=== PATIENT | female | born 1990 | race African-American/Black ===

== ENCOUNTER 2021-02-10 21:55 | Emergency (ER) | payer MEDICAID, OTHER ==
[~2021-02-10] VITALS: Ht 157.5 cm; Wt 66.2 kg
[2021-02-10 22:14] VITALS: BP 146/90
== END 2021-02-11 06:36 | disposition left against medical advice (07) ==
LOC: ER 21:58
DX: U07.1 COVID-19 (principal); R05.9 Cough, unspecified; R06.02 Shortness of breath; Z53.21 Procedure and treatment not carried out due to patient leaving prior to being seen by health care provider

== ENCOUNTER 2023-03-24 13:35 | Observation (INO) | payer MEDICAID ==
[~2023-03-24] VITALS: Ht 157.5 cm; Wt 90.7 kg
[2023-03-24] MEDS: LACTATED RINGER'S 1,000 ML IV ONE (15:26)
[2023-03-24] MEDS: ONDANSETRON HCL 4 MG/2 ML VIAL IV STA (15:26)
[2023-03-24] MEDS ORDERED: TERBUTALINE SULFATE 1 MG/ML 1ML VIAL SC SCH (17:30)
[2023-03-24] MEDS: BETAMETHASONE ACET (30mg/5ml) 5ml Vial 6mg/ml IM ONE (18:58)
[2023-03-24] MEDS ORDERED: MAALOX PLUS or MAALOX 30 ML PO ONE (19:30)
== END 2023-03-24 20:14 | disposition home or self-care (01) ==
LOC: LDRP 13:35
PROVIDERS: ADMIT Obstetrics & Gynecology; ATTEND Obstetrics & Gynecology
DX: O21.2 Late vomiting of pregnancy (principal); O26.893 Other specified pregnancy related conditions, third trimester; R10.9 Unspecified abdominal pain; Z3A.34 34 weeks gestation of pregnancy
CPT/HCPCS: 59025; 76805; 76818; 81002; 94760; 96361; 96372; 96374; G0378; J0702; J2405; 96360

== ENCOUNTER 2023-03-25 17:52 | Observation (INO) | payer MEDICAID ==
[~2023-03-25] VITALS: Ht 157.5 cm; Wt 99.8 kg
[2023-03-25] MEDS: BETAMETHASONE ACET (30mg/5ml) 5ml Vial 6mg/ml IM ONE (18:42)
[2023-03-25] MEDS ORDERED: LACTATED RINGER'S 1,000 ML IV SCH (19:00)
== END 2023-03-25 23:00 | disposition home or self-care (01) ==
LOC: LDRP 17:52
PROVIDERS: ADMIT Obstetrics & Gynecology; ATTEND Obstetrics & Gynecology
DX: O60.03 Preterm labor without delivery, third trimester (principal); O69.81X0 Labor and delivery complicated by cord around neck, without compression, not applicable or unspecified; O76 Abnormality in fetal heart rate and rhythm complicating labor and delivery; Z3A.35 35 weeks gestation of pregnancy
CPT/HCPCS: 59025; 76818; 81002; 94760; 96360; 96361; 96372; G0378

== ENCOUNTER 2023-03-26 09:39 | Observation (INO) | payer MEDICAID | END 2023-03-26 10:45 | disposition home or self-care (01) | LOC: LDRP 09:39 → UNDOADMOB 09:39 → LDRP 09:41 | PROVIDERS: ADMIT Obstetrics & Gynecology; ATTEND Obstetrics & Gynecology | DX: O62.9 Abnormality of forces of labor, unspecified (principal); O09.213 Supervision of pregnancy with history of pre-term labor, third trimester; O69.89X0 Labor and delivery complicated by other cord complications, not applicable or unspecified; Z3A.35 35 weeks gestation of pregnancy | CPT/HCPCS: 59025; 81002; 94760; G0378 ==

== ENCOUNTER 2023-03-26 19:06 | Inpatient (IN) | payer MEDICAID ==
[~2023-03-26] VITALS: Ht 157.5 cm; Wt 95.3 kg
[2023-03-26] MEDS: LACT. RINGERS/OXYTOCIN 20UNITS 1,000 ML IV SCH (04:00)
[2023-03-27] VITALS (18 sets, daily range): BP systolic 92–127; BP diastolic 53–82; PULSE 72–101; RESP 12–18; TEMP 97.5–98.7; O2SAT 95–99
[2023-03-27] MEDS: D5W/SOD CHL 0.45% 1,000 ML IV SCH (01:45)
[2023-03-27] MEDS ORDERED: KETOROLAC TROMETH 30 MG/ML 1ML VIAL ONE (04:13)
[2023-03-27] MEDS ORDERED: oxyTOCIN 10 UNIT/ML 10ML VIAL ONE (04:13)
[2023-03-27] MEDS ORDERED: DexAMETHasone SOD PHOS 10MG/1ML VIAL INJ ONE (04:13)
[2023-03-27] MEDS ORDERED: ONDANSETRON HCL 4 MG/2 ML VIAL ONE (04:13)
[2023-03-27] MEDS ORDERED: MORPHINE SULF PF 5 MG/10 ML VIAL ONE (04:14)
[2023-03-27] MEDS ORDERED: fentaNYL CITRATE 100 MCG/2 ML VL ONE (04:15)
[2023-03-27 04:21] LABS: Basophils # (auto) 0 10 ^3/uL (0-0.2); Basophils % (auto) 0.1 % (0.0-2.0); Eosinophils # (auto) 0 10 ^3/uL (0-0.8); Eosinophils % (auto) 0.2 % (0.0-7.0); Hemoglobin 9.1 g/dL (12.2-16.2); Lymphocytes # (auto) 2.5 10 ^3/uL (0.4-5.4); Lymphocytes % (auto) 20.4 % (10.0-50.0); Mean Corpuscular Hemoglobin 31.5 pg (28.0-32.0); Mean Corpuscular Hgb Conc. 32.7 g/dL (32.0-36.0); Mean Corpuscular Volume 96.4 fL (80.0-100.0); Monocytes # (auto) 0.9 10 ^3/uL (0-1.3); Monocytes % (auto) 7.7 % (0.0-12.0); Neutrophils # (auto) 8.7 10 ^3/uL (1.6-8.6); Neutrophils % (auto) 71.6 % (37.0-80.0); Red Cell Distribution Width 14.3 % (11.8-14.3); White Blood Cell 12.1 10^3/uL (4.4-10.8)
[2023-03-27 04:31] LABS: Urine Bacteria FEW /hpf (None Seen); Urine Blood Negative /uL (Negative); Urine Clarity HAZY (Clear); Urine Color Yellow (Yellow); Urine Mucus FEW (None Seen); Urine Protein, UAD Negative (Negative); Urine Specific Gravity 1.012 (1.001-1.035); Urine WBC 4 /hpf (0 - 5); Urine pH 6.5 (5.0-8.0)
[2023-03-27 04:32] LABS: Amphetamine Screen, Urine Neg (NEGATIVE); Barbiturate Scree,Urine Neg (NEGATIVE); Benzodiazephine Screen, Urine Neg (NEGATIVE)
[2023-03-27 04:33] LABS: Cannabinoid Screen, Urine Neg (NEGATIVE); Cocaine Screen, Urine Neg (NEGATIVE); Opiate Scree,Urine Neg (NEGATIVE); Phencyclidine Screen, Urine Neg (NEGATIVE)
[2023-03-27 04:35] LABS: Alanine Aminotransferase 12 U/L (7-40); Albumin 3.8 g/dL (3.2-4.8); Alkaline Phosphatase 120 U/L (46-116); Anion Gap 5 (5-15); Aspartate Aminotransferase 26 U/L (13-40); Bilirubin, Total 0.7 mg/dL (0.2-1.0); Calcium 8.7 mg/dL (8.5-10.1); Carbon Dioxide 25 mmol/L (20-30); Chloride 110 mmol/L (98-107); Glucose 107 mg/dL (74-106); Potassium 3.4 mmol/L (3.5-5.1); Sodium 140 mmol/L (136-145); Total Protein 6.2 g/dL (5.7-8.2)
[2023-03-27 04:36] LABS: BUN/Creatinine Ratio 8.8 (10.0-20.0); Blood Urea Nitrogen < 5 mg/dL (9-23)
[2023-03-27 04:40] LABS: INR 0.95 (0.9-1.15); Partial Thromboplastin Time 25.6 SEC (24.5-34.5)
[2023-03-27] MEDS: LACTATED RINGER'S 1,000 ML IV ONE (04:48)
[2023-03-27] MEDS: ceFAZolin 1GM/50ML 50 ML IV ONE (04:48)
[2023-03-27] MEDS ORDERED: ceFAZolin 1GM VL ONE (05:11)
[2023-03-27] MEDS ORDERED: ceFAZolin 1GM/50ML 50 ML IV SCH (06:45)
[2023-03-27] MEDS ORDERED: HYDROmorphone HCL 2 MG/ML VL/or syr IV PRN (06:45)
[2023-03-27] MEDS ORDERED: NALBUPHINE HCL 10 MG/1ml INJECTION IV ONE (06:45)
[2023-03-27] MEDS ORDERED: LACT. RINGERS/OXYTOCIN 20UNITS 1,000 ML IV SCH (06:45)
[2023-03-27] MEDS ORDERED: ONDANSETRON HCL 4 MG/2 ML VIAL IV PRN (06:45)
[2023-03-27] MEDS ORDERED: KETOROLAC TROMETH 30 MG/ML 1ML VIAL IV PRN (06:45)
[2023-03-27] MEDS ORDERED: diphenhdrAMINE HCL 50 MG/1 ML VL IV PRN (06:45)
[2023-03-27] MEDS ORDERED: NALOXONE HCL 0.4 MG/ML VIAL IV PRN (06:45)
[2023-03-27 08:18] LABS: Basophils # (auto) 0 10 ^3/uL (0-0.2); Basophils % (auto) 0.1 % (0.0-2.0); Eosinophils # (auto) 0 10 ^3/uL (0-0.8); Eosinophils % (auto) 0.3 % (0.0-7.0); Hematocrit 24.1 % (36.0-46.0); Hemoglobin 7.9 g/dL (12.2-16.2); Lymphocytes # (auto) 1.7 10 ^3/uL (0.4-5.4); Lymphocytes % (auto) 17.2 % (10.0-50.0); Mean Corpuscular Hgb Conc. 32.9 g/dL (32.0-36.0); Mean Corpuscular Volume 97.1 fL (80.0-100.0); Monocytes # (auto) 0.5 10 ^3/uL (0-1.3); Neutrophils # (auto) 7.5 10 ^3/uL (1.6-8.6); Neutrophils % (auto) 77.4 % (37.0-80.0); Nucleated Red Blood Cells % 0.1 %; Red Blood Cells 2.48 10^6/uL (4.0-5.20); Red Cell Distribution Width 14.6 % (11.8-14.3); White Blood Cell 9.7 10^3/uL (4.4-10.8)
[2023-03-27] MEDS: ONDANSETRON HCL 4 MG/2 ML VIAL IV PRN (08:33)
[2023-03-27] MEDS: diphenhdrAMINE HCL 50 MG/1 ML VL IV PRN (08:33)
[2023-03-27 12:17] LABS: Basophils # (auto) 0 10 ^3/uL (0-0.2); Eosinophils # (auto) 0 10 ^3/uL (0-0.8); Monocytes # (auto) 1.3 10 ^3/uL (0-1.3); Monocytes % (auto) 7.4 % (0.0-12.0); Nucleated Red Blood Cells % 0.1 %; Red Cell Distribution Width 15.1 % (11.8-14.3); White Blood Cell 17.7 10^3/uL (4.4-10.8)
[2023-03-27 12:20] LABS: Basophils % (auto) 0.2 % (0.0-2.0); Hematocrit 24.1 % (36.0-46.0); Hemoglobin 7.6 g/dL (12.2-16.2); Lymphocytes # (auto) 1.3 10 ^3/uL (0.4-5.4); Lymphocytes % (auto) 7.2 % (10.0-50.0); Mean Corpuscular Hemoglobin 31.4 pg (28.0-32.0); Mean Corpuscular Hgb Conc. 31.6 g/dL (32.0-36.0); Mean Corpuscular Volume 99.4 fL (80.0-100.0); Neutrophils # (auto) 15.1 10 ^3/uL (1.6-8.6); Neutrophils % (auto) 85.2 % (37.0-80.0); Red Blood Cells 2.42 10^6/uL (4.0-5.20)
[2023-03-27] MEDS: ceFAZolin 1GM/50ML 50 ML IV SCH (13:00)
[2023-03-27] MEDS ORDERED: DEXTROSE 10% IV ONE (15:45)
[2023-03-27] MEDS: LACTATED RINGER'S 1,000 ML IV SCH (18:11)
[2023-03-28] VITALS (21 sets, daily range): BP systolic 92–132; BP diastolic 42–78; PULSE 77–97; RESP 12–18; TEMP 97.9–99; O2SAT 93–99
[2023-03-28] MEDS: ACETAMINOPHEN IV 1000 MG/100ML (10MG/ML) IV PRN (03:22)
[2023-03-28 06:58] LABS: Basophils # (auto) 0 10 ^3/uL (0-0.2); Basophils % (auto) 0.1 % (0.0-2.0); Eosinophils # (auto) 0 10 ^3/uL (0-0.8); Eosinophils % (auto) 0.1 % (0.0-7.0); Monocytes # (auto) 1.4 10 ^3/uL (0-1.3); Neutrophils % (auto) 78.2 % (37.0-80.0)
[2023-03-28 07:01] LABS: Hematocrit 20.1 % (36.0-46.0); Lymphocytes # (auto) 2.6 10 ^3/uL (0.4-5.4); Lymphocytes % (auto) 14.2 % (10.0-50.0); Mean Corpuscular Hemoglobin 31.1 pg (28.0-32.0); Mean Corpuscular Hgb Conc. 32.3 g/dL (32.0-36.0); Mean Corpuscular Volume 96.4 fL (80.0-100.0); Monocytes % (auto) 7.4 % (0.0-12.0); Neutrophils # (auto) 14.3 10 ^3/uL (1.6-8.6); Red Blood Cells 2.09 10^6/uL (4.0-5.20); Red Cell Distribution Width 14.8 % (11.8-14.3); White Blood Cell 18.3 10^3/uL (4.4-10.8)
[2023-03-28 07:06] LABS: RPR Non Reactive (Non Reactive)
[2023-03-28 07:09] LABS: Hemoglobin 6.5 g/dL (12.2-16.2)
[2023-03-28] MEDS: ceFAZolin 1GM/50ML 50 ML IV ONE (09:40)
[2023-03-28] MEDS ORDERED: SIMETHICONE 80 MG CHEWABLE TABLET PO PRN (10:00)
[2023-03-28] MEDS ORDERED: BISACODYL 10 MG RECT SUPP PR PRN (10:00)
[2023-03-28] MEDS ORDERED: HYDROcodone-ACET 5/325MG TAB PO PRN (10:00)
[2023-03-28] MEDS: FERROUS SULFATE 325mg EC TAB PO SCH (12:17)
[2023-03-28] MEDS: DOCUSATE CALCIUM 240 MG CAP PO SCH (12:17)
[2023-03-28] MEDS: DOCUSATE SOD 100 MG CAP PO SCH (12:20)
[2023-03-28] MEDS: IBUPROFEN 800 MG TAB PO PRN (15:18)
[2023-03-28 20:24] LABS: Basophils # (auto) 0 10 ^3/uL (0-0.2); Basophils % (auto) 0.2 % (0.0-2.0); Eosinophils # (auto) 0 10 ^3/uL (0-0.8); Eosinophils % (auto) 0.2 % (0.0-7.0); Hematocrit 28.1 % (36.0-46.0); Hemoglobin 9.1 g/dL (12.2-16.2); Lymphocytes # (auto) 2.9 10 ^3/uL (0.4-5.4); Mean Corpuscular Hemoglobin 30.8 pg (28.0-32.0); Mean Corpuscular Hgb Conc. 32.6 g/dL (32.0-36.0); Mean Corpuscular Volume 94.6 fL (80.0-100.0); Monocytes # (auto) 1.3 10 ^3/uL (0-1.3); Monocytes % (auto) 8.1 % (0.0-12.0); Neutrophils % (auto) 73.5 % (37.0-80.0); Nucleated Red Blood Cells % 0.3 %; Red Blood Cells 2.97 10^6/uL (4.0-5.20); White Blood Cell 16.3 10^3/uL (4.4-10.8)
[2023-03-28] MEDS ORDERED: IBUP-1455 PO (21:43)
[2023-03-28] MEDS ORDERED: DOCU-265 PO (21:43)
[2023-03-28] MEDS ORDERED: PREN-96 PO (21:43)
[2023-03-28] MEDS ORDERED: HYDR-4902 PO (21:43)
[2023-03-28] MEDS ORDERED: FER325T PO (21:43)
[2023-03-29 03:30] VITALS: BP 100/60; PULSE 84; RESP 16; TEMP 98.4; O2SAT 96
[2023-03-29] MEDS: HYDROcodone-ACET 5/325MG TAB PO PRN (04:31)
[2023-03-29 07:00] VITALS: BP 103/49; PULSE 78; RESP 18; TEMP 98.3; O2SAT 98
[2023-03-29 19:06] LABS: Treponema pallidum Ab (FTA-Ab) Non Reactive (Non Reactive)
== END 2023-03-29 10:06 | disposition home or self-care (01) | DRG 540 ==
LOC: LDRP 19:06 → OBSVTOIN 03-27 03:40 → LDRP 03-27 06:09
PROVIDERS: ADMIT Obstetrics & Gynecology; ATTEND Obstetrics & Gynecology
PROC: 10D00Z1 Extraction of Products of Conception, Low, Open Approach (ICD-10-PCS; principal; 2023-03-27 05:04)
PROC: 30233N1 Transfusion of Nonautologous Red Blood Cells into Peripheral Vein, Percutaneous Approach (ICD-10-PCS; 2023-03-28)
DX: O34.211 Maternal care for low transverse scar from previous cesarean delivery (principal); O60.14X0 Preterm labor third trimester with preterm delivery third trimester, not applicable or unspecified; D62 Acute posthemorrhagic anemia; O72.1 Other immediate postpartum hemorrhage; O90.81 Anemia of the puerperium; O76 Abnormality in fetal heart rate and rhythm complicating labor and delivery; N73.6 Female pelvic peritoneal adhesions (postinfective); O99.892 Other specified diseases and conditions complicating childbirth; Z3A.35 35 weeks gestation of pregnancy; Z37.0 Single live birth
CPT/HCPCS: 36415; 36430; 59025; 76818; 80053; 80307; 81001; 85025; 85610; 85730; 86592; 86850; 86900; 86901; 86920; 94760; 94762; 96360; 96361; 96365; 96366; 96375; G0378; J0131; J0690; J1100; J1885; J2405; J2590

== ENCOUNTER 2023-03-31 10:52 | Emergency (ER) | payer MEDICAID ==
[~2023-03-31] VITALS: Ht 170.2 cm; Wt 90.8 kg
[~2023-03-31 10:52] MED LIST: DOCU-265 PO; FER325T PO; HYDR-4902 PO; IBUP-1455 PO; PREN-96 PO
[2023-03-31 13:43] VITALS: BP 127/71; PULSE 78; RESP 18; O2SAT 98
== END 2023-03-31 13:45 | disposition home or self-care (01) ==
LOC: ER 10:52
DX: O90.89 Other complications of the puerperium, not elsewhere classified (principal); R60.0 Localized edema; Z98.890 Other specified postprocedural states; Z79.899 Other long term (current) drug therapy
CPT/HCPCS: 93970